=== PATIENT | female | born 1980 | race African-American/Black ===

== ENCOUNTER 2017-01-13 09:42 | Emergency (ER) | payer OTHER ==
[~2017-01-13] VITALS: Ht 165.1 cm; Wt 83.0 kg
[~2017-01-13 09:42] MED LIST: IBUP-1060 PO
--- NOTE | 2017-01-13 09:59 | PHYS DOC ---
Past Medical History Past Medical History: GERD Past Surgical History: No Surgical History Alcohol Use: None Drug Use: None Adult General Chief Complaint Chief Complaint: DENTAL PROBLEM HPI HPI Patient is a 36 year old female who presents with 2 days of dental pain. Pt has attempted ibuprofen and orajel without relief. No fevers. Denies other complaints. Pt had vaginal delivery on 12/10/2016 without reported complications. She arrives today with HTN and denies known h/o HTn. She believes it is 2/2 to the pain. Records show pt had normal BP in hospital of delivery. Review of Systems Review of Systems Constitutional: Denies fever or chills [] Eyes: Denies change in visual acuity, redness, or eye pain [] HENT: Denies nasal congestion or sore throat [] Respiratory: Denies cough or shortness of breath [] Cardiovascular: denies chest pain GI: Denies abdominal pain, nausea, vomiting, bloody stools or diarrhea [] : Denies dysuria or hematuria [] Musculoskeletal: Denies back pain or joint pain [] Integument: Denies rash or skin lesions [] Neurologic: Denies headache, focal weakness or sensory changes [] Endocrine: Denies polyuria or polydipsia [] Current Medications Current Medications Current Medications Medications (Trade) Dose Ordered Sig/Yayo Start Time Stop Time Status Last Admin Dose Admin Nifedipine (Procardia) 10 mg 1X ONCE 01/13/17 11:30 01/13/17 11:31 DC 01/13/17 11:37 10 MG Tramadol HCl (Ultram) 50 mg 1X ONCE 01/13/17 10:00 01/13/17 10:02 DC 01/13/17 10:24 50 MG Allergies Allergies Allergies Coded Allergies Type Severity Reaction Last Updated Verified No Known Drug Allergies 01/16/16 No Physical Exam Physical Exam Constitutional: Well developed, well nourished, no acute distress, non-toxic appearance. [] HENT: Normocephalic, atraumatic, bilateral external ears normal, oropharynx moist, no oral exudates, nose normal. TTP of tooth #21 with mild edema, no appreciable fluctuance, on the medial aspect of same tooth there is a firmness that is ttp, feels calcified. Pt has erosion of gumline on anterior base of tto #24. no trismus. Eyes: PERRLA, EOMI, conjunctiva normal, no discharge. [] Neck: Normal range of motion, no tenderness, supple, no stridor. [] Cardiovascular:Heart rate regular with regular rhythm, no murmur [] Lungs & Thorax: Bilateral breath sounds clear to auscultation [] Abdomen: Bowel sounds normal, soft, no tenderness, no masses, no pulsatile masses. [] Skin: Warm, dry, no erythema, no rash. [] Back: No tenderness, no CVA tenderness. [] Extremities: No tenderness, no cyanosis, no clubbing, ROM intact, no edema. [] Neurologic: Alert and oriented X 3, normal motor function, normal sensory function, no focal deficits noted. [] Psychologic: Affect normal, judgement normal, mood normal. [] Current Patient Data Vital Signs Vital Signs Date Time Temp Pulse Resp B/P (MAP) Pulse Ox O2 Delivery O2 Flow Rate FiO2 01/13/17 13:01 90 148/99 (115) 97 Room Air 01/13/17 11:30 16 01/13/17 09:50 98.4 98.4 Lab Values Laboratory Tests Test 01/13/17 10:55 01/13/17 10:58 White Blood Count 5.0 x10^3/uL (4.0-11.0) Red Blood Count 5.33 x10^6/uL (3.50-5.40) Hemoglobin 14.3 g/dL (12.0-15.5) Hematocrit 43.6 % (36.0-47.0) Mean Corpuscular Volume 82 fL (79-100) Mean Corpuscular Hemoglobin 27 pg (25-35) Mean Corpuscular Hemoglobin Concent 33 g/dL (31-37) Red Cell Distribution Width 13.5 % (11.5-14.5) Platelet Count 205 x10^3/uL (140-400) Neutrophils (%) (Auto) 55 % (31-73) Lymphocytes (%) (Auto) 36 % (24-48) Monocytes (%) (Auto) 6 % (0-9) Eosinophils (%) (Auto) 2 % (0-3) Basophils (%) (Auto) 1 % (0-3) Neutrophils # (Auto) 2.7 x10^3uL (1.8-7.7) Lymphocytes # (Auto) 1.8 x10^3/uL (1.0-4.8) Monocytes # (Auto) 0.3 x10^3/uL (0.0-1.1) Eosinophils # (Auto) 0.1 x10^3/uL (0.0-0.7) Basophils # (Auto) 0.0 x10^3/uL (0.0-0.2) Total Bilirubin 0.5 mg/dL (0.2-1.0) Direct Bilirubin 0.1 mg/dL (0.0-0.2) Aspartate Amino Transferase (AST) 22 U/L (15-37) Alanine Aminotransferase (ALT) 38 U/L (14-59) Alkaline Phosphatase 79 U/L (46-116) Total Protein 7.7 g/dL (6.4-8.2) Albumin 3.6 g/dL (3.4-5.0) POC Hemoglobin 14.6 g/dL (12-15) POC Hematocrit 43 % (36-40) H POC Sodium 144 mmol/L (135-145) POC Potassium 3.8 mmol/L (3.5-5.0) POC Chloride 106 mmol/L (98-110) POC Total CO2 24 mmol/L (23-32) Anion Gap 18 mmol/L (6-14) H POC Blood Urea Nitrogen 6 mg/dL (8-26) L POC Creatinine 0.6 mg/dL (0.5-1.4) Glucose Level 87 mg/dL (70-99) POC Ionized Calcium (Leona) 1.20 mmol/L (1.13-1.32) Laboratory Tests 01/13/17 10:55 Laboratory Tests 01/13/17 10:58 EKG EKG 138 bpm, sinus, rightward axis with limb leads likely reversed, no ST elevation or depression, nonischemic T waves, interpreted by me; 1202 Radiology/Procedures Radiology/Procedures [] Course & Med Decision Making Course & Med Decision Making Pertinent Labs and Imaging studies reviewed. (See chart for details) Pt with dental pain, likely apical abscess, will treat with penicillin, peridex and tramadol for pain as pt states ibuprofen/tylenol not strong enough. Pt reports she plans to pump/dump instead of feed baby while taking the meds. Pt also with htn, new from baseline. Pt is at risk for preeclampsia. I contacted Dr. Workman, he recommended labs and treat with procardia if pressure doesn't improve. It did not, she was given 10mg, labs unremarkable. Plant to dc pt with the same. When nurse gave pt information regarding discharge and the need to follow -up for the elevated blood pressure, patient became very anxious and her heart rate showed up to 170. She was taken to room 3, an EKG was performed and showed that she had a sinus tach in the 130s. Patient admitted that she just became very anxious, is now feeling much better. She was monitored for a period of time and her heart rate returned to normal. The patient on the need to follow-up with Dr. Workman, get the prescriptions filled and return if she has any new concerning symptoms. Patient voiced understanding. After patient was discharged and she went to felt her prescriptions, the pharmacy stated that her insurance would not pay for the blood pressure medication. I asked that they call for further recommendations and they were in agreement. Dragon Disclaimer Dragon Disclaimer This electronic medical record was generated, in whole or in part, using a voice recognition dictation system. Departure Departure Impression: Primary Impression: Abscess Additional Impression: Accelerated hypertension Disposition: HOME, SELF-CARE Condition: STABLE Referrals: NO PCP (PCP) Scripts Chlorhexidine Gluconate (PERIDEX) 15 Ml Mouthwash 15 ML PO BID, #473 ML Prov: SUBHASH ALEJANDRE MD 01/13/17 Penicillin V Potassium (PENICILLIN V POTASSIUM) 500 Mg Tablet 1 TAB PO TID, #21 TAB Prov: SUBHASH ALEJANDRE MD 01/13/17 Tramadol Hcl (TRAMADOL HCL) 50 Mg Tablet 1 TAB PO PRN Q6HRS Y for PAIN, #20 TAB Prov: SUBHASH ALEJANDRE MD 01/13/17 [Procardia] No Conflict Check 10 MG PO TID, #30 TAB Prov: SUBHASH ALEJANDRE MD 01/13/17 Problem Qualifiers SUBHASH ALEJANDRE MD Jan 13, 2017 09:58
[2017-01-13] MEDS ORDERED: traMADol 50 MG TABLET PO ONE (10:00)
[2017-01-13 11:04] LABS: BASO % 1 % (0-3); EOS % 2 % (0-3); HEMATOCRIT 43.6 % (36.0-47.0); HEMOGLOBIN 14.3 g/dL (12.0-15.5); LYMPH # 1.8 x10^3/uL (1.0-4.8); LYMPH % 36 % (24-48); MEAN CORPUSCULAR HEMOGLOBIN 27 pg (25-35); MEAN CORPUSCULAR HGB CONC 33 g/dL (31-37); MEAN CORPUSCULAR VOLUME 82 fL (79-100); MONO % 6 % (0-9); NEUT % 55 % (31-73); PLATELET COUNT 205 x10^3/uL (140-400); RED BLOOD COUNT 5.33 x10^6/uL (3.50-5.40); RED CELL DISTRIBUTION WIDTH 13.5 % (11.5-14.5)
[2017-01-13 11:08] LABS: POTASSIUM ISTAT 3.8 mmol/L (3.5-5.0)
[2017-01-13 11:25] LABS: ALBUMIN 3.6 g/dL (3.4-5.0); DIRECT BILIRUBIN 0.1 mg/dL (0.0-0.2); TOTAL BILIRUBIN 0.5 mg/dL (0.2-1.0); TOTAL PROTEIN 7.7 g/dL (6.4-8.2)
[2017-01-13] MEDS ORDERED: NIFEdipine 10 MG CAPSULE PO ONE (11:30)
[2017-01-13] MEDS ORDERED: Procardia PO (11:50)
[2017-01-13] MEDS ORDERED: TRAM50TA PO (11:50)
[2017-01-13] MEDS ORDERED: CHLO15MO2 PO (11:50)
[2017-01-13] MEDS ORDERED: PENI500T PO (11:50)
[2017-01-13 13:01] VITALS: BP 148/99
--- NOTE | 2017-01-13 16:14 | EKG ---
[facility] [address] [place] [address] Test Date: 2017-01-13 Test Time: 12:02:04 Pat Name: CARLEEN ALMODOVAR Department: Room: Gender: F Youth Development Specialist: : [id number] Requested By: SUBHASH ALEJANDRE Order Number: [id number] Reading MD: Measurements Intervals Cammal Rate: 138 P: 112 MI: 116 QRS: 152 QRSD: 80 T: 3 QT: 278 QTc: 421 Interpretive Statements SINUS TACHYCARDIA LEFT ATRIAL ABNORMALITY ABNORMAL RIGHT AXIS DEVIATION QRS(T) CONTOUR ABNORMALITY CONSISTENT WITH HIGH LATERAL INFARCT AGE UNDETERMINED ST & T ABNORMALITY, CONSIDER ANTERIOR ISCHEMIA OR LEFT VENTRICULAR STRAIN ABNORMAL ECG RI6.01 No previous ECG available for comparison
== END 2017-01-13 13:07 | disposition home or self-care (01) ==
LOC: ER 09:42
DX: K04.7 Periapical abscess without sinus (principal); I10 Essential (primary) hypertension; K21.9 Gastro-esophageal reflux disease without esophagitis
CPT/HCPCS: 36415; 80047; 80076; 85025; 93005; 99285-25